=== PATIENT | female | born 1960 | race Two or more races ===

== ENCOUNTER 2019-05-07 20:07 | Inpatient (IN) | payer OTHER, MEDICAID | END 2019-05-09 18:55 | disposition home or self-care (01) | LOC: TELE-WESTW 23:23 → ER 20:07 → TELE 20:08 → TELE-WESTW 23:23 | DX: I47.1 Supraventricular tachycardia (principal); I20.0 Unstable angina; F41.9 Anxiety disorder, unspecified; E11.65 Type 2 diabetes mellitus with hyperglycemia; I10 Essential (primary) hypertension; Z90.710 Acquired absence of both cervix and uterus ==